=== PATIENT | female | born 1940 | race Caucasian/White ===

== ENCOUNTER 2018-09-01 12:21 | Outpatient (CLI) | payer MEDICARE ==
--- NOTE | 2018-09-01 18:48 | MRI ---
MRI OF THE LUMBAR SPINE WITHOUT CONTRAST: 09/01/18 COMPARISON: 01/13/14 HISTORY: Lumbar spondylosis. Previous laminectomy five years ago. Chronic back pain, x1 year. TECHNIQUE: MRI of the lumbar spine is performed without intravenous gadolinium administration. Multisequential, multiplanar imaging is performed. FINDINGS: Stable rightward curvature of the lumbar spine at L1 and L2. There is T1 hypointense, T2 hypointense signal irregularity involving the inferior end plate of T12 and superior end plate of L1 suggesting t ype III Modic change. A peripheral type I Modic change is noted. There is 3.7 mm of retrolisthesis of L1 upon L2, 4.3 mm of retrolisthesis of L2 upon L3, 3.7 mm retrolisthesis of L5 upon S1. Symmetric signal intensity of the psoas muscles and visualized solid organs. Conus medullaris terminates at the T12-L1 disc space level. T12-L1: Desiccation with moderate loss of disc space height. Left and right paracentral disc bulges w ith mild central canal stenosis. Mild bilateral foraminal narrowing. L1-L2: Desiccation with severe loss of disc space height. Left and right paracentral disc bulges. The re appears to be a left laminectomy defect. Mild central canal stenosis. Encroachment upon the left s ubarticular zone with presumed mass effect upon the traversing left L2 nerve root. Moderate right and severe left foraminal narrowing. L2-L3: Desiccation with severe loss of disc space height. Broad based disc bulge, ligamentum flavum t hickening and facet hypertrophy result in mild central canal stenosis. There appears to be a left tay inectomy defect. Severe right and left foraminal narrowing. L3-L4: Desiccation with moderate loss of disc space height. No significant posterior disc abnormality . There is ligamentum flavum and facet hypertrophy. No significant central stenosis. Moderate to yuliana re right and moderate left foraminal narrowing. L4-L5: Desiccation with moderate loss of disc space height. Broad based disc bulge, ligamentum flavum thickening and facet hypertrophy result in mild central canal stenosis. Moderate right and mild to m oderate left foraminal narrowing. L5-S1: Adequate disc hydration. Generalized disc bulge, ligamentum flavum thickening and facet hypert rophy result in mild central canal stenosis. Mild to moderate bilateral foraminal narrowing. IMPRESSION: Degenerative changes in the lumbar spine as detailed above. POS: ETO
== END 2018-09-01 12:22 | disposition home or self-care (01) ==
LOC: SCSMRI 12:21
PROVIDERS: ATTEND Nurse Practitioner Family
DX: M47.896 Other spondylosis, lumbar region (principal)
CPT/HCPCS: 72148